=== PATIENT | female | born 1950 | race Caucasian/White ===

== ENCOUNTER → 2019-07-01 11:31 | Outpatient (BNVA) | payer MEDICARE, MEDICAID, SELFPAY | PROVIDERS: PCP Internal Medicine Cardiovascular Disease; Visit Provider Family Medicine | DX: L98.9 Disorder of the skin and subcutaneous tissue, unspecified (principal) | CPT/HCPCS: 88305 ==

== ENCOUNTER → 2019-11-17 16:23 | Outpatient (BNVA) | payer MEDICARE, MEDICAID, SELFPAY | PROVIDERS: PCP Internal Medicine Cardiovascular Disease; Visit Provider Family Medicine | DX: M25.551 Pain in right hip (principal); G62.9 Polyneuropathy, unspecified | CPT/HCPCS: 73502 ==

== ENCOUNTER → 2020-03-16 11:14 | Outpatient (BNVA) | payer MEDICARE, MEDICAID, SELFPAY | PROVIDERS: PCP Internal Medicine Cardiovascular Disease; Visit Provider Family Medicine | DX: E78.5 Hyperlipidemia, unspecified (principal); I10 Essential (primary) hypertension; G62.9 Polyneuropathy, unspecified; K21.9 Gastro-esophageal reflux disease without esophagitis; F31.9 Bipolar disorder, unspecified | CPT/HCPCS: 80053; 80061; 80178; 84443 ==

== ENCOUNTER → 2020-03-29 14:17 | Outpatient (BNVA) | payer MEDICARE, MEDICAID, SELFPAY | PROVIDERS: PCP Internal Medicine Cardiovascular Disease; Visit Provider Family Medicine | DX: L97.922 Non-pressure chronic ulcer of unspecified part of left lower leg with fat layer exposed (principal); L03.116 Cellulitis of left lower limb | CPT/HCPCS: 73590 ==

== ENCOUNTER 2020-03-31 13:06 | Outpatient (CLI) | payer MEDICARE, MEDICAID, SELFPAY | END 2020-03-31 13:07 | disposition home or self-care (01) | PROVIDERS: PCP Specialist; Visit Provider Thoracic Surgery (Cardiothoracic Vascular Surgery) | DX: L97.822 Non-pressure chronic ulcer of other part of left lower leg with fat layer exposed (principal) | CPT/HCPCS: 11042; G0463 ==

== ENCOUNTER 2020-04-07 13:55 | Outpatient (CLI) | payer MEDICARE, MEDICAID, SELFPAY | END 2020-04-07 13:56 | disposition home or self-care (01) | LOC: WOUND 13:56 | PROVIDERS: PCP Internal Medicine Cardiovascular Disease; Visit Provider Thoracic Surgery (Cardiothoracic Vascular Surgery) | DX: L97.822 Non-pressure chronic ulcer of other part of left lower leg with fat layer exposed (principal) | CPT/HCPCS: 11042 ==

== ENCOUNTER 2020-04-14 10:24 | Outpatient (CLI) | payer MEDICARE, MEDICAID, SELFPAY | END 2020-04-14 10:25 | disposition home or self-care (01) | LOC: WOUND 10:31 | PROVIDERS: Visit Provider Nurse Practitioner Family | DX: L97.822 Non-pressure chronic ulcer of other part of left lower leg with fat layer exposed (principal) | CPT/HCPCS: 11042 ==

== ENCOUNTER 2020-04-28 10:17 | Outpatient (CLI) | payer MEDICARE, MEDICAID, SELFPAY | END 2020-04-28 10:18 | disposition home or self-care (01) | LOC: WOUND 10:17 | PROVIDERS: Visit Provider Thoracic Surgery (Cardiothoracic Vascular Surgery) | DX: L97.822 Non-pressure chronic ulcer of other part of left lower leg with fat layer exposed (principal); I96 Gangrene, not elsewhere classified | CPT/HCPCS: 11042 ==

== ENCOUNTER 2020-05-12 13:34 | Outpatient (CLI) | payer MEDICARE, SELFPAY | END 2020-05-12 13:35 | disposition home or self-care (01) | LOC: WOUND 13:35 | PROVIDERS: PCP Internal Medicine Cardiovascular Disease; Visit Provider Thoracic Surgery (Cardiothoracic Vascular Surgery) | DX: Z09 Encounter for follow-up examination after completed treatment for conditions other than malignant neoplasm (principal) | CPT/HCPCS: 99212 ==

== ENCOUNTER → 2020-09-28 16:13 | Outpatient (BNVA) | payer MEDICARE, MEDICAID, SELFPAY | PROVIDERS: PCP Family Medicine; Visit Provider Family Medicine | DX: I10 Essential (primary) hypertension (principal); F31.9 Bipolar disorder, unspecified; E78.2 Mixed hyperlipidemia | CPT/HCPCS: 80053; 80061; 80178; 84443; 85025 ==

== ENCOUNTER → 2020-11-23 09:36 | Outpatient (BNVA) | payer MEDICARE, MEDICAID, SELFPAY | PROVIDERS: PCP Family Medicine; Visit Provider Family Medicine | DX: M25.551 Pain in right hip (principal) | CPT/HCPCS: 73502 ==

== ENCOUNTER → 2021-09-07 09:34 | Outpatient (BNVA) | payer MEDICARE, SELFPAY | PROVIDERS: PCP Family Medicine; Visit Provider Family Medicine | DX: I10 Essential (primary) hypertension (principal); E78.5 Hyperlipidemia, unspecified; F31.9 Bipolar disorder, unspecified | CPT/HCPCS: 80053; 80061; 80178; 84443; 85025 ==

== ENCOUNTER → 2022-01-31 08:50 | Outpatient (BNVA) | payer MEDICARE, MEDICAID, SELFPAY | PROVIDERS: PCP Family Medicine; Visit Provider Family Medicine | DX: I10 Essential (primary) hypertension (principal); F31.9 Bipolar disorder, unspecified; E78.5 Hyperlipidemia, unspecified; J44.9 Chronic obstructive pulmonary disease, unspecified; J30.2 Other seasonal allergic rhinitis | CPT/HCPCS: 80053; 80061; 80178; 84443; 85025 ==

== ENCOUNTER → 2022-05-11 09:29 | Outpatient (BNVA) | payer MEDICARE, MEDICAID, SELFPAY | PROVIDERS: PCP Family Medicine; Visit Provider Nurse Practitioner Family | DX: K59.00 Constipation, unspecified (principal); Z23 Encounter for immunization; R19.8 Other specified symptoms and signs involving the digestive system and abdomen; Z80.0 Family history of malignant neoplasm of digestive organs | CPT/HCPCS: 74018 ==

== ENCOUNTER → 2022-06-02 10:17 | Outpatient (BNVA) | payer MEDICARE, MEDICAID, SELFPAY | PROVIDERS: PCP Family Medicine; Referring Provider Nurse Practitioner Family; Visit Provider Surgery | DX: K59.00 Constipation, unspecified (principal) | CPT/HCPCS: 99203 ==

== ENCOUNTER → 2022-09-07 09:51 | Outpatient (BNVA) | payer MEDICARE, MEDICAID, SELFPAY | PROVIDERS: PCP Family Medicine; Visit Provider Family Medicine | DX: D48.5 Neoplasm of uncertain behavior of skin (principal) | CPT/HCPCS: 88304 ==

== ENCOUNTER → 2022-09-28 10:57 | Outpatient (BNVA) | payer MEDICARE, MEDICAID, SELFPAY | PROVIDERS: PCP Family Medicine; Visit Provider Family Medicine | DX: M25.551 Pain in right hip (principal) | CPT/HCPCS: 73502 ==

== ENCOUNTER → 2022-10-05 14:41 | Outpatient (BNVA) | payer MEDICARE, MEDICAID, SELFPAY | PROVIDERS: PCP Family Medicine; Referring Provider Family Medicine; Visit Provider Nurse Practitioner Family | DX: M16.11 Unilateral primary osteoarthritis, right hip (principal); M70.61 Trochanteric bursitis, right hip | CPT/HCPCS: 20610; 99214; J1100; J2795; J3301 ==

== ENCOUNTER → 2023-04-25 09:04 | Outpatient (BNVA) | payer MEDICARE, MEDICAID, SELFPAY | PROVIDERS: PCP Family Medicine; Visit Provider Nurse Practitioner Family | DX: J06.9 Acute upper respiratory infection, unspecified (principal) | CPT/HCPCS: 87400; 87426 ==

== ENCOUNTER 2023-09-06 12:48 | Outpatient (CLI) | payer MEDICARE, MEDICAID, SELFPAY ==
--- NOTE | 2023-09-06 12:53 | MM_ITS ---
WS: [id number] BILATERAL 3D TOMOSYNTHESIS DIGITAL DIAGNOSTIC MAMMOGRAPHY WITH CAD CLINICAL INFORMATION: MASTODYNIA HISTORY: Bilateral breast pain. COMPARISON: 2019 TECHNIQUE: Bilateral CC, MLO, and ML views. FINDINGS: The breasts are composed of heterogeneous fibroglandular density, which can limit the detection of sm all underlying mass lesions. Incidental punctate and lucent centered calcifications. Vascular calcifi cation. Bilateral breast ultrasound pending. ULTRASOUND BREAST BILATERAL TECHNIQUE: Ultrasound bilateral breast focused area of concern. CLINICAL INFORMATION: MASTODYNIA FINDINGS: RIGHT BREAST: Ultrasound subareolar RIGHT breast. Mild ductal ectasia. No cystic or solid lesions. LEFT BREAST: Ultrasound subareolar LEFT breast. Mild ductal ectasia. No cystic or solid lesions. IMPRESSION: MM/[place] [id number] BI-RADS: 2-Benign FOLLOW UP: 1 Year Follow-up Recommend return to annual screening mammography.
--- NOTE | 2023-09-06 13:30 | US_ITS ---
WS: [id number] BILATERAL 3D TOMOSYNTHESIS DIGITAL DIAGNOSTIC MAMMOGRAPHY WITH CAD CLINICAL INFORMATION: MASTODYNIA HISTORY: Bilateral breast pain. COMPARISON: 2019 TECHNIQUE: Bilateral CC, MLO, and ML views. FINDINGS: The breasts are composed of heterogeneous fibroglandular density, which can limit the detection of sm all underlying mass lesions. Incidental punctate and lucent centered calcifications. Vascular calcifi cation. Bilateral breast ultrasound pending. ULTRASOUND BREAST BILATERAL TECHNIQUE: Ultrasound bilateral breast focused area of concern. CLINICAL INFORMATION: MASTODYNIA FINDINGS: RIGHT BREAST: Ultrasound subareolar RIGHT breast. Mild ductal ectasia. No cystic or solid lesions. LEFT BREAST: Ultrasound subareolar LEFT breast. Mild ductal ectasia. No cystic or solid lesions. IMPRESSION: US/US breast BI limited* [id number] BI-RADS: 2-Benign FOLLOW UP: 1 Year Follow-up Recommend return to annual screening mammography.
== END 2023-09-06 12:49 | disposition home or self-care (01) ==
LOC: RAD 12:48
PROVIDERS: PCP Family Medicine; Visit Provider Family Medicine
DX: N64.4 Mastodynia (principal); R92.323 Mammographic fibroglandular density, bilateral breasts
CPT/HCPCS: 76642; 77062; G0279

== ENCOUNTER → 2023-11-09 09:24 | Outpatient (BNVA) | payer MEDICARE, MEDICAID, SELFPAY | PROVIDERS: PCP Family Medicine; Visit Provider Nurse Practitioner Family | DX: L57.0 Actinic keratosis (principal); L82.0 Inflamed seborrheic keratosis; L98.8 Other specified disorders of the skin and subcutaneous tissue; L81.4 Other melanin hyperpigmentation | CPT/HCPCS: 17000; 17110; 99203 ==

== ENCOUNTER → 2024-01-31 16:00 | Outpatient (BNVA) | payer MEDICARE, MEDICAID, SELFPAY | PROVIDERS: PCP Family Medicine; Visit Provider Family Medicine | DX: I10 Essential (primary) hypertension (principal); E78.2 Mixed hyperlipidemia | CPT/HCPCS: 80053; 80061; 84443; 85025 ==

== ENCOUNTER → 2024-06-18 14:47 | Outpatient (BNVA) | payer MEDICARE, MEDICAID, SELFPAY | PROVIDERS: PCP Nurse Practitioner Family; Visit Provider Nurse Practitioner Family | DX: I10 Essential (primary) hypertension (principal); F31.9 Bipolar disorder, unspecified | CPT/HCPCS: 80053; 80061; 80178; 82607; 83036; 83735; 84443; 85025 ==

== ENCOUNTER 2024-07-01 09:29 | Outpatient (CLI) | payer MEDICARE, MEDICAID, SELFPAY ==
--- NOTE | 2024-07-01 09:30 | CT_ITS ---
WS: [id number] LDCT LUNG CANCER SCREENING HISTORY: F17.210 - Nicotine dependence, cigarettes, uncomplicated TECHNIQUE: Axial imaging performed from the apices to 1 cm below the costophrenic angles. Coronal and sagittal reformats are submitted with axial MIP series. All CT scans at [facility] use at least one of these dose optimization techniques: automated exposure control; mA and/or kV adjustment per patient size (includes targeted exams where dose is matched to clinical indication); or iterative reconstruction. DLP: 45.61 mGy.cm DIvol: Mean CTDIvol: 0.80 (mGy) COMPARISON: None available. Diagnostic quality: Satisfactory. Lungs: Mild hazy groundglass attenuation at the lung bases with linear scarring. No mass or pulmonary nodule. No endobronchial lesions. Heart: Normal size heart with no pericardial effusion.. Coronary artery calcifications. Other findings: Mild atherosclerosis aorta. Normal size pulmonary artery. No adenopathy. Small hiatal hernia. Prior cholecystectomy. LEFT hepatic cyst 3.1 cm. No adrenal mass. Degenerative disc disease and spondylosis thoracic spine. CT/CT lung screening [id number] IMPRESSION: LUNG-RADS: 2-Benign Appearance or Behavior FOLLOW UP: 12 Month: Continue annual screening with LDCT OTHER FINDINGS (S MODIFIER): None.
== END 2024-07-01 09:30 | disposition home or self-care (01) ==
LOC: RAD 09:30
PROVIDERS: PCP Nurse Practitioner Family; Visit Provider Nurse Practitioner Family
DX: Z12.2 Encounter for screening for malignant neoplasm of respiratory organs (principal); F17.210 Nicotine dependence, cigarettes, uncomplicated; R91.8 Other nonspecific abnormal finding of lung field; I25.10 Atherosclerotic heart disease of native coronary artery without angina pectoris; I70.0 Atherosclerosis of aorta; K44.9 Diaphragmatic hernia without obstruction or gangrene; Z90.49 Acquired absence of other specified parts of digestive tract; K76.89 Other specified diseases of liver; M51.34 Other intervertebral disc degeneration, thoracic region; M47.894 Other spondylosis, thoracic region
CPT/HCPCS: 71271

== ENCOUNTER 2024-10-29 12:06 | Emergency (ER) | payer OTHER, MEDICAID, SELFPAY ==
[2024-10-29 12:17] VITALS: BP 123/80; PULSE 80; RESP 16; TEMP 36.7; O2SAT 95
--- NOTE | 2024-10-29 13:00 | USCV_ITS ---
Corrie Rasheed Age: 74 Gender: F : 1950 Exam Date: 10/29/2024 13:05 Ordering Phys: Rhea Fink Technologist: [employer] [place] [facility] [place]: knots on the left leg HISTORY: knots on the left leg PROCEDURES: Venous duplex imaging was performed in only the left lower extremity. The following venous structures were evaluated: common femoral vein, profunda vein, proximal portion of the greater saphenous vein, superficial femoral vein, and the popliteal vein. In addition, the posterior tibial and peroneal trunk were evaluated. FINDINGS: No evidence of DVT seen in any vessel visualized at this time. CONCLUSIONS No evidence of left lower extremity DVT. Chuck Lea MD (Electronically Signed) Final Date: 29 October 2024 13:42 S
[2024-10-29 14:21] VITALS: BP 120/74; PULSE 82; RESP 16; O2SAT 95
--- NOTE | 2024-10-29 14:38 | XR_ITS ---
WS: [id number] XR chest 1V portable [id number] REASON FOR EXAM: ams FINDINGS: Chest is relatively unchanged compared to 04/01/2019. Moderate tortuosity of the thoracic aorta. Normal heart size. Calcified granulomatous disease bilaterally. No no acute pulmonary parenchymal or pleural abnormality. Mild S-shaped scoliosis with mild degenerative spondylosis of the thoracic spine. XR/XR chest 1V portable [id number] IMPRESSION: Stable chest without acute abnormality.
--- NOTE | 2024-10-29 14:38 | CTR_ITS ---
PROCEDURE INFORMATION: Exam: CT Head Without Contrast Exam date and time: 10/29/2024 3:29 PM Age: 74 years old Clinical indication: Altered mental status/memory loss; Additional info: AMS TECHNIQUE: Imaging protocol: Computed tomography of the head without contrast. Radiation optimization: All CT scans at this facility use at least one of these dose optimization techniques: automated exposure control; mA and/or kV adjustment per patient size (includes targeted exams where dose is matched to clinical indication); or iterative reconstruction. COMPARISON: No relevant prior studies available. RADIATION DOSE METRICS: Total DLP (mGy-cm): 1099.38 FINDINGS: Brain: There are mild involutional changes of the brain which are in keeping with the patient's age. Periventricular hypodensities are nonspecific but most likely reflect chronic microvascular ischemic disease. There is no acute intracranial hemorrhage or abnormal extra-axial fluid collection identified. There is no intracranial mass effect or shift of midline structures. The jeffries-white differentiation is preserved throughout. There is no sulcal effacement. The basilar cisterns are open. Cerebral ventricles: No hydrocephalus or ventricular effacement. Paranasal sinuses: The visualized sinuses are unremarkable. Mastoid air cells: There is a mild right mastoid effusion. Question minimal left mastoid effusion. Bones: No calvarial fracture or destructive osseous lesions are seen. Soft tissues: Unremarkable. Vasculature: Atherosclerotic vascular disease is noted at the level of the skull base. CT/CT head wo con* [id number] IMPRESSION: 1. No acute intracranial pathology identified by CT. 2. Mild right mastoid effusion. Question minimal left mastoid effusion.
--- NOTE | 2024-10-29 14:39 | ED_ITS ---
HPI - General Adult 2 General: Chief complaint: Extremity Injury, Lower Stated complaint: thinks has blood clot in left leg Time Seen by Provider: 10/29/24 14:24 Source: patient and family (son) Mode of arrival: ambulatory Limitations: no limitations History of Present Illness: Patient is a 74-year-old female here with two separate complaints. Her first complaint is that she has been noticing knots to the posterior lateral portion of her left lower leg. She was concerned about a blood clot. She has not had any injury or trauma. She states her leg aches but this is normal with her fibromyalgia and her spider veins . She has not noticed any swelling or redness. She does take Lyrica for her fibromyalgia and states this is working better than the gabapentin she used to take-this is a recent med change. Her second complaint is that she believes she had a mini stroke yesterday . States she was trying to make a grocery list but she could not think straight . Son states that she has been having some dementia like symptoms for a while (increased forgetfulness) now but they have seemed to worsen over the past few days. Patient has not been ill recently. No fevers. Upon arrival she has no focal deficits. NIH of 0. No previous history of TIA/CVA. No known cardiac arrhythmia. Onset (ago): day(s) Severity: mild Pain Consistency: constant Relieving factors: none Exacerbating factors: none Associated symptoms: Reports confusion; Deny chest pain, dyspnea, headache(s), malaise, nausea, rash or vomiting Treatments prior to arrival: none Related Data Previous Rx's ?Medication ?Instructions ?Recorded nitroglycerin 0.4 mg sublingual 0.4 mg sublingual Q5M PRN chest 01/31/24 tablet pain #30 tabs duloxetine 60 mg capsule,delayed See Rx Instructions . Route 06/18/24 release .COMPLEX #180 caps albuterol sulfate 90 mcg/actuation See Rx Instructions .Route 08/04/24 aerosol inhaler .COMPLEX #8.5 grams carvedilol 3.125 mg tablet See Rx Instructions .Route 09/10/24 .COMPLEX #180 tabs celecoxib 200 mg capsule See Rx Instructions .Route 0 09/10/24 .COMPLEX #180 caps famotidine 20 mg tablet See Rx Instructions .Route 0 09/10/24 .COMPLEX #180 tabs fenofibrate micronized 67 mg See Rx Instructions .Rout e 09/10/24 capsule .COMPLEX #90 caps lithium carbonate 150 mg capsule See Rx Instructions . Route 09/10/24 .COMPLEX #60 caps pregabalin 50 mg capsule (Lyrica) 50 mg PO BID #60 cap s 09/10/24 rosuvastatin 40 mg tablet See Rx Instructions .Route 0 09/10/24 .COMPLEX #90 tabs solifenacin 10 mg tablet See Rx Instructions .Route 0 09/10/24 .COMPLEX #90 tabs trazodone 100 mg tablet See Rx Instructions .Route 0 09/10/24 .COMPLEX #90 tabs isosorbide mononitrate 30 mg See Rx Instructions .Rout e 09/15/24 tablet,extended release 24 hr .COMPLEX #90 tabs budesonide-formoterol HFA 160 See Rx Instructions .Rou te 09/25/24 mcg-4.5 mcg/actuation aerosol .COMPLEX #10.2 grams inhaler (Symbicort) Allergies Allergy/AdvReac Type Severity Reaction Status Date / Time No Known Allergies Allergy Verified 09/10/24 13:44 Review of Systems 2 Const: Denies: fever(s), chills, body aches, fatigue or malaise Eyes: Denies: change in vision, blurry vision, photophobia, floaters or seeing flashes Card: Denies: chest pain Resp: Denies: dyspnea GI: Denies: abdominal pain, nausea or vomiting : Denies: flank pain, dysuria or hematuria Musc: Reports: extremity pain (reports knots in L LE); Denies: neck pain, back pain, extremity swelling, joint pain, joint swelling or joint redness Skin/Breast: Denies: rash Neuro: Reports: confusion; Denies: headache(s), numbness in extremities, weakness in extremities, sensory changes, lack of coordination, difficulty walking, frequent falls, dizziness, vertigo, Slurred speech present or seizure-like activity PFSH ED 2 PFSH: Medical History Enrolled in chronic care management Hx of fracture of femur left femur Bipolar depression Hyperlipidemia GERD (gastroesophageal reflux disease) Fibromyalgia Hypertension Surgical History Hx of tubal ligation Hx of cholecystectomy Family History Other Cancer Diabetes Hyperlipidemia Stroke Social History Smoking and tobacco/nicotine status: current every day tobacco/nicotine user Alcohol intake: never Substance/Drug Use: current Substance/Drug use frequency: few times a week Lives independently: Yes Marital status: service: No Current occupational status: disabled Current gender identity: Female Physical Exam 2 Const: COMMON NORMALS: no acute distress, average body habitus, patient oriented x3, no limitations, healthy appearing, alert and well nourished G ENERAL APPEARANCE: cooperative ORIENTATION/CONSCIOUSNESS: Yes awake, Yes oriented to person, Yes oriented to place and Yes oriented to time HENMT: COMMON NORMALS: normocephalic and atraumatic HEAD & SCALP: normal to inspection, normocephalic and atraumatic FACE & SINUS: normal facial exam and face symmetric Eye: GENERAL EYE: appearance normal, both eyes and all related structures and normal light reflex VISUAL NARANJO: No peripheral vision loss and No central vision loss DIRECT OPHTHALMOSCOPY: Yes normal light reflex Neck/C-Spine: COMMON NORMALS: full ROM, no lymphadenopathy, supple, no meningeal signs, no JVD and No carotid bruits Chest: COMMONS NORMALS: normal inspection of the chest Resp: COMMON NORMALS: normal respiratory effort and clear to auscultation bilaterally AUSCULTATION: clear to auscultation bilaterally Cardio: COMMON NORMALS: no JVD, regular rate and regular rhythm RATE: r egular rate RHYTHM: regular rhythm GI: COMMON NORMALS: non-tender : COMMON NORMALS: Yes no CVA tenderness BLADDER/KIDNEY EXAM: Yes no CVA tenderness Back/Pelvis: COMMON NORMALS: no CVA tenderness and thoracic and lumbar spine normal to inspection Extremity: COMMON NORMALS: normal to inspection, full ROM, capillary refill normal, no joint enlargement, no clubbing, cyanosis or edema, no calf tenderness and no pedal edema GENERAL: Yes normal exam except as noted OTHER: normal examination L LE-I do not appreciate any edema, chronic spider veins , no calf swelling, no erythema; maybe a very small area of phlebitis/superficial thrombophlebitis where patient states the knot it although this is not obvious Neuro: COMMON NORMALS: patient oriented x3, moves all extremities, no focal motor deficits, no sensory deficits noted and gait normal S ENSORIUM/ORIENTATION: Yes alert, Yes oriented to person, Yes oriented to place and Yes oriented to time MENINGEAL SIGNS: Yes no meningeal signs Skin: COMMON NORMALS: no rashes or lesions noted GENERAL SKIN EXAM: no rashes or lesions noted Course 2 Vital Signs: Vital signs: Vital Signs Temperature 98.0 F 10/29/24 12:17 Pulse Rate 82 10/29/24 14:21 Respiratory Rate 16 10/29/24 14:21 Blood Pressure 120/74 10/29/24 14:21 Pulse Oximetry 95 10/29/24 14:21 Oxygen Delivery Me thod Room Air 10/29/24 14:21 MDM - General Adult Medical Decision Making Son pulled me aside and reported that she has been having increased forgetfulness for quite some time and he is worried about dementia. She has no focal neurologic deficits today. Her blood work overall is nonactionable. UA does not look suspicious for infection. CXR is stable. EKG showing sinus rhythm. Her head CT showing chronic findings. Recommended follow-up with primary care. She did also have an ultrasound of her left lower extremity which was negative for DVT. Medical Records I reviewed the patient's medical records. Lab Data I reviewed the patient's lab results. 10/29/24 15:09 10/29/24 15:09 Radiology Impressions Chest X-Ray 10/29/24 14:38 IMPRESSION: Stable chest without acute abnormality. Head CT 10/29/24 14:38 IMPRESSION: 1. No acute intracranial pathology identified by CT. 2. Mild right mastoid effusion. Question minimal left mastoid effusion. Laboratory Results WBC 6.66 10^3/uL (3.29-11.43) 10/29/24 15:09 RBC 4.64 10^6/uL (3.85-5.65) 10/29/24 15:09 Hgb 13.90 g/dL (11.27-16.99) 10/29/24 15:09 Hct 45.3 % (36-47) 10/29/24 15:09 MCV 97.6 fl (85-98) 10/29/24 15:09 MCH 30.0 pg (27-33) 10/29/24 15:09 MCHC 30.7 g/dL (30-55) 10/29/24 15:09 RDW 12.7 % (12.1-15.1) 10/29/24 15:09 Plt Count 143 10^3/cmm (157-399) L 10/29/24 15:09 MPV 10.4 fL (7.4-10.4) 10/29/24 15:09 Neut % (Auto) 47.8 % 10/29/24 15:09 Lymph % (Auto) 38.4 % 10/29/24 15:09 [place] % (Auto) 9.8 % 10/29/24 15:09 Eos % (Auto) 2.6 % 10/29/24 15:09 Baso % (Auto) 1.2 % 10/29/24 15:09 Neut # (Auto) 3.19 10^3/uL (1.8-7.7) 10/29/24 15:09 Lymph # (Auto) 2.6 10^3/uL (0.8-4.8) 10/29/24 15:09 [place] # (Auto) 0.7 10^3/uL (0.2-0.9) 10/29/24 15:09 Eos # (Auto) 0.2 10^3/uL (0.0-0.8) 10/29/24 15:09 Baso # (Auto) 0.1 10^3/uL (0.0-0.1) 10/29/24 15:09 Nucleated RBC % (auto) 0 % 10/29/24 15:09 Nucleated RBCs # 0.0 /100WBC 10/29/24 15:09 Sodium 140 mmol/L (136-145) 10/29/24 15:09 Potassium 4.3 mmol/L (3.5-5.1) 10/29/24 15:09 Chloride 104 mmol/L (98-107) 10/29/24 15:09 Carbon Dioxide 31 mmol/L (22-29) H 10/29/24 15:09 Anion Gap 9.3 (5-19) 10/29/24 15:09 BUN 12 mg/dL (8-23) 10/29/24 15:09 Creatinine 0.7 mg/dL (0.5-0.9) 10/29/24 15:09 GFR Calculation Not Reportable 10/29/24 15:09 Glucose 78 mg/dL (65-115) 10/29/24 15:09 Calculated Osmolality 289 mOsm/kg (285-295) 10/29/24 15:09 Calcium 9.4 mg/dL (8.5-10.5) 10/29/24 15:09 Total Bilirubin 0.4 mg/dL (0.15-1.2) 10/29/24 15:09 AST 13 U/L (0-32) 10/29/24 15:09 ALT 11 U/L (0-33) 10/29/24 15:09 Alkaline Phosphatase 71 U/L (35-105) 10/29/24 15:09 Total Protein 6.5 g/dL (6.6-8.7) L 10/29/24 15:09 Albumin 3.9 g/dL (3.5-5.2) 10/29/24 15:09 Globulin 2.6 g/dL (1.3-4.6) 10/29/24 15:09 Urine Color Yellow (Yellow) 10/29/24 16:33 Urine Appearance Clear (CLEAR) 10/29/24 16:33 Urine pH 6.5 (5-7) 10/29/24 16:33 Ur Specific [place] 1.020 (1.005-1.030) 10/29/24 16:33 Urine Protein Negative (Negative) 10/29/24 16:33 Urine Glucose (UA) Negative (Normal) 10/29/24 16:33 Urine Ketones Negative (Negative) 10/29/24 16:33 Urine Blood Negative (Negative) 10/29/24 16:33 Urine Nitrate Negative (Negative) 10/29/24 16:33 Urine Bilirubin Negative (Negative) 10/29/24 16:33 Urine Urobilinogen 1.0 mg/dL (Negative) 10/29/24 16:33 Ur Leukocyte Esterase Trace (Negative) A 10/29/24 16:33 Urine RBC 0-2 /hpf (0-2) 10/29/24 16:33 Urine WBC 0-5 /hpf (0-5) 10/29/24 16:33 Ur Squamous Epith Cells 0-5 /hpf (0-5) 10/29/24 16:33 Uric Acid Crystals N /hpf 10/29/24 16:33 Amorphous Sediment Not Reportable 10/29/24 16:33 Urine Bacteria Trace /hpf (NONE) 10/29/24 16:33 Hyaline Casts 0.40 /lpf 10/29/24 16:33 [place] 0.4 mmol/L (0.6-1.2) L 10/29/24 15:09 All radiology interpretation(s) finalized by discharge Discharge Plan Discharge Patient Disposition: Home Clinical Impression: Forgetfulness, Left leg pain Condition: Stable Prescriptions: No Action lidocaine HCl [Xylocaine] 10 mg/mL (1 %) solution 2.5 ml IM ONCE Qty: 20 0RF lidocaine-epinephrine [Xylocaine with Epinephrine] 2 %-1:100,000 solution 20 ml SUBCUT ONCE Qty: 1 0RF nitroglycerin 0.4 mg tablet, sublingual 0.4 mg sublingual Q5M PRN (Reason: chest pain) Qty: 30 0RF Rx Instructions: do not exceed 3 doses per episode pregabalin [Lyrica] 50 mg capsule 50 mg PO BID Qty: 60 2RF lithium carbonate 150 mg capsule See Rx Instructions .ROUTE .COMPLEX Qty: 60 2RF Dose Instruction: TAKE TWO CAPSULES BY MOUTH EVERY DAY Rx Instructions: TAKE TWO CAPSULES BY MOUTH EVERY DAY fenofibrate micronized 67 mg capsule See Rx Instructions .ROUTE .COMPLEX Qty: 90 0RF Dose Instruction: TAKE ONE CAPSULE BY MOUTH EVERY DAY. Rx Instructions: TAKE ONE CAPSULE BY MOUTH EVERY DAY. famotidine 20 mg tablet See Rx Instructions .ROUTE .COMPLEX Qty: 180 0RF Dose Instruction: TAKE ONE TABLET BY MOUTH TWICE DAILY. Rx Instructions: TAKE ONE TABLET BY MOUTH TWICE DAILY. celecoxib 200 mg capsule See Rx Instructions .ROUTE .COMPLEX Qty: 180 0RF Dose Instruction: TAKE ONE CAPSULE BY MOUTH TWICE DAILY NEEDED FOR PAIN Rx Instructions: TAKE ONE CAPSULE BY MOUTH TWICE DAILY NEEDED FOR PAIN carvedilol 3.125 mg tablet See Rx Instructions .ROUTE .COMPLEX Qty: 180 0RF Dose Instruction: TAKE ONE TABLET BY MOUTH TWICE DAILY Rx Instructions: TAKE ONE TABLET BY MOUTH TWICE DAILY rosuvastatin 40 mg tablet See Rx Instructions .ROUTE .COMPLEX Qty: 90 0RF Dose Instruction: TAKE ONE TABLET BY MOUTH EVERY DAY Rx Instructions: TAKE ONE TABLET BY MOUTH EVERY DAY solifenacin 10 mg tablet See Rx Instructions .ROUTE .COMPLEX Qty: 90 0RF Dose Instruction: TAKE ONE TABLET BY MOUTH EVERY DAY Rx Instructions: TAKE ONE TABLET BY MOUTH EVERY DAY trazodone 100 mg tablet See Rx Instructions .ROUTE .COMPLEX Qty: 90 0RF Dose Instruction: TAKE ONE TABLET BY MOUTH DAILY Rx Instructions: TAKE ONE TABLET BY MOUTH DAILY flu vacc [id number](65yr up)-PF 180 mcg/0.5 mL syringe 0.5 ml IM ONCE Qty: 1 0RF duloxetine 60 mg capsule,delayed release(DR/EC) See Rx Instructions .ROUTE .COMPLEX Qty: 180 1RF Dose Instruction: TAKE ONE CAPSULE BY MOUTH TWICE DAILY Rx Instructions: TAKE ONE CAPSULE BY MOUTH TWICE DAILY albuterol sulfate 90 mcg/actuation HFA aerosol inhaler See Rx Instructions .ROUTE .COMPLEX Qty: 8.5 2RF Dose Instruction: INHALE TWO PUFFS BY MOUTH FOUR TIMES DAILY NEEDED SHORTNESS OF BREATH OR FOR WHEEZING Rx Instructions: INHALE TWO PUFFS BY MOUTH FOUR TIMES DAILY NEEDED SHORTNESS OF BREATH OR FOR WHEEZING isosorbide mononitrate 30 mg tablet extended release 24 hr See Rx Instructions .ROUTE .COMPLEX Qty: 90 1RF Dose Instruction: TAKE ONE TABLET BY MOUTH EVERY DAY Rx Instructions: TAKE ONE TABLET BY MOUTH EVERY DAY budesonide-formoterol [Symbicort] 160-4.5 mcg/actuation HFA aerosol inhaler See Rx Instructions .ROUTE .COMPLEX Qty: 10.2 2RF Dose Instruction: INHALE TWO PUFFS BY MOUTH TWICE DAILY Rx Instructions: INHALE TWO PUFFS BY MOUTH TWICE DAILY Discharge Orders: Discharge ED (Routine); Ordered 10/29/24 Ordered By: Rhea Fink Referrals: Nafisa Ricardo, [employer]ANT [Primary Care Provider, Family Practice] Activity Restrictions/Additional Instructions: As we discussed, please follow-up with primary care for further evaluation of symptoms as well as your forgetfulness. They can also further evaluate you for your leg pain. Print Language: Citizen Of [place] Coding Level of Care Code ED Director Patient Financial Services for Nael Irby
--- NOTE | 2024-10-29 14:39 | ECG_ITS ---
[facility]: 2024-[facility]29 Pat Name: Corrie Rasheed Department: Room: Gender: Female [employer]: : 1950 Requested By: Rhea Fink Order Number: [id number] Enmanuel MD: TRAVIS CADET Measurements Intervals [place] Rate: 76 P: 42 ND: 177 QRS: 54 QRSD: 88 T: 58 QT: 373 QTc: 421 Interpretive Statements SINUS RHYTHM Compared to ECG 04/01/2019 19:52:50 No significant changes Electronically Signed On 10-29-2024 23:09:02 CDT by TRAVIS CADET [email or web address]
[2024-10-29 15:47] LABS: Basophils # 0.1 10^3/uL (0.0-0.1); Basophils % 1.2 %; Eosinophils # 0.2 10^3/uL (0.0-0.8); Eosinophils % 2.6 %; Hematocrit 45.3 % (36-47); Lymphocytes # 2.6 10^3/uL (0.8-4.8); Lymphocytes % 38.4 %; Mean Corpuscular HGB Conc 30.7 g/dL (30-55); Mean Corpuscular Volume 97.6 fl (85-98); Mean Platelet Volume 10.4 fL (7.4-10.4); Monocytes # 0.7 10^3/uL (0.2-0.9); Monocytes % 9.8 %; Neutrophils # 3.19 10^3/uL (1.8-7.7); Neutrophils % 47.8 %; Nucleated Red Blood Cells % 0 %; Platelet Count 143 10^3/cmm (157-399); Red Blood Count 4.64 10^6/uL (3.85-5.65); Red Cell Distribution Width 12.7 % (12.1-15.1); White Blood Count 6.66 10^3/uL (3.29-11.43)
[2024-10-29 16:12] LABS: Alanine Aminotransferase 11 U/L (0-33); Albumin Level 3.9 g/dL (3.5-5.2); Alkaline Phosphatase 71 U/L (35-105); Anion Gap 9.3 (5-19); Aspartate Amino Transferase 13 U/L (0-32); Blood Urea Nitrogen 12 mg/dL (8-23); Calcium 9.4 mg/dL (8.5-10.5); Carbon Dioxide 31 mmol/L (22-29); Chloride 104 mmol/L (98-107); Creatinine Clr Calc Pharmacy 62.5544; Globulin 2.6 g/dL (1.3-4.6); Glucose 78 mg/dL (65-115); Osmolality Calculated 289 mOsm/kg (285-295); Potassium 4.3 mmol/L (3.5-5.1); Sodium 140 mmol/L (136-145); Total Bilirubin 0.4 mg/dL (0.15-1.2); Total Protein 6.5 g/dL (6.6-8.7)
[2024-10-29 16:17] LABS: Lithium 0.4 mmol/L (0.6-1.2)
[2024-10-29 16:53] LABS: Bilirubin Urine Negative (Negative); Blood Urine Negative (Negative); Glucose Urine UA Negative (Normal); Ketones Urine Negative (Negative); Leukocyte Esterase Urine Trace (Negative); Nitrate Urine Negative (Negative); Protein Urine Negative (Negative); Urine Appearance Clear (CLEAR); Urine Color Yellow (Yellow); pH Urine 6.5 (5-7)
[2024-10-29 16:56] LABS: Add Urine Microscopic? YES; Bacteria Urine Trace /hpf; RBC Urine 0-2 /hpf (0-2); Squamous Epithelial Cell Urine 0-5 /hpf (0-5); WBC Urine 0-5 /hpf (0-5)
[2024-10-29 16:58] LABS: Uric Acid Crystals Urine N /hpf
[2024-10-29 17:20] VITALS: BP 115/76; PULSE 77; O2SAT 96
== END 2024-10-29 18:11 | disposition home or self-care (01) ==
PROVIDERS: Emergency Provider Physician Assistant; PCP Nurse Practitioner Family
DX: M79.605 Pain in left leg (principal); R41.3 Other amnesia; Z72.0 Tobacco use; I10 Essential (primary) hypertension
CPT/HCPCS: 36415; 70450; 71045; 80053; 80178; 81001; 85025; 93005; 93971; 99285

== ENCOUNTER → 2024-11-18 14:48 | Outpatient (BNVA) | payer OTHER, MEDICAID, SELFPAY | PROVIDERS: PCP Nurse Practitioner Family; Referring Provider Nurse Practitioner Family; Visit Provider Nurse Practitioner Family | DX: M54.50 Low back pain, unspecified (principal); G89.29 Other chronic pain | CPT/HCPCS: 72100; 99214 ==

== ENCOUNTER → 2024-12-05 08:59 | Outpatient (BNVA) | payer OTHER, MEDICAID, SELFPAY | PROVIDERS: PCP Nurse Practitioner Family; Visit Provider Nurse Practitioner Family | DX: M79.18 Myalgia, other site (principal); M54.50 Low back pain, unspecified; G89.29 Other chronic pain | CPT/HCPCS: 20553; 99214; J1010; J3490 ==

== ENCOUNTER → 2024-12-10 13:10 | Outpatient (BNVA) | payer OTHER, MEDICAID, SELFPAY | PROVIDERS: PCP Nurse Practitioner Family; Visit Provider Nurse Practitioner Family | DX: L98.8 Other specified disorders of the skin and subcutaneous tissue (principal); L72.0 Epidermal cyst; L82.1 Other seborrheic keratosis; L81.4 Other melanin hyperpigmentation; D22.5 Melanocytic nevi of trunk; Z08 Encounter for follow-up examination after completed treatment for malignant neoplasm; Z85.828 Personal history of other malignant neoplasm of skin; D48.5 Neoplasm of uncertain behavior of skin | CPT/HCPCS: 11102; 99213 ==

== ENCOUNTER → 2024-12-19 08:59 | Outpatient (BNVA) | payer OTHER, MEDICAID, SELFPAY | PROVIDERS: PCP Nurse Practitioner Family; Visit Provider Nurse Practitioner Family | DX: M54.50 Low back pain, unspecified (principal); G89.29 Other chronic pain | CPT/HCPCS: 99214 ==

== ENCOUNTER 2024-12-26 06:30 | Outpatient (RCR) | payer OTHER, MEDICAID, SELFPAY | END 2025-01-25 23:59 | disposition home or self-care (01) | LOC: TPT 06:30 | PROVIDERS: Visit Provider Nurse Practitioner Family | DX: M47.816 Spondylosis without myelopathy or radiculopathy, lumbar region (principal) | CPT/HCPCS: 97161 ==

== ENCOUNTER → 2025-03-10 09:23 | Outpatient (BNVA) | payer OTHER, MEDICAID, SELFPAY | PROVIDERS: PCP Nurse Practitioner Family; Visit Provider Nurse Practitioner Family | DX: M54.50 Low back pain, unspecified (principal); G89.29 Other chronic pain | CPT/HCPCS: 99214 ==